=== PATIENT | female | born 1965 | race Caucasian/White ===

== ENCOUNTER 2021-10-11 15:27 | Observation (INO) | payer OTHER ==
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
[2021-10-11] MEDS ORDERED: FENTANYL CITR 100 MCG/2 ML ONE ×3 (15:54→20:51)
[2021-10-11] MEDS ORDERED: NA CHLORIDE 0.9% 1,000 ML ONE ×2 (15:54→20:51)
[2021-10-11] MEDS ORDERED: ONDANSETRON 4 MG/2 ML VIAL ONE ×3 (15:54→20:51)
[2021-10-11 16:04] LABS: Absolute Lymphocytes (CBC) 1.8 K/uL (0.7-4.9); Hematocrit 38.7 % (36.0-45.0); Lymphocytes % 29.6 % (15.3-44.8); MPV 7.7 fL (7.6-11.3); RBC Red Blood Cell Count 4.82 M/uL (3.86-4.86)
[2021-10-11 16:19] LABS: Albumin 3.9 g/dL (3.4-5.0); Bilirubin Total 0.4 mg/dL (0.2-1.0); Potassium 3.1 mmol/L (3.5-5.1); Protein, Total 7.5 g/dL (6.4-8.2)
--- NOTE | 2021-10-11 16:55 | RAD REPORT ---
EXAM DESCRIPTION: US - Abdomen Exam Limited - 10/11/2021 4:25 pm CLINICAL HISTORY: ABD PAIN COMPARISON: Abdomen Exam Limited dated 07/03/2021 FINDINGS: Multiple small mobile gallstones are seen scattered throughout the lumen. There are 2 marcio tional 10-12 mm gallstones that are fixed at the neck of the gallbladder. There is no wall thickening or pericholecystic fluid. No common duct stone or biliary tree dilatation identified. IMPRESSION: Multi stone cholelithiasis including 2 gallstones that are fixed at the neck of the gall bladder. No wall thickening, pericholecystic fluid or other acute cholecystitis findings. No biliary tree abnormality.
--- NOTE | 2021-10-11 17:05 | EDPHYS ---
Physician Documentation [facility] Name: Gisella gA Age: 55 yrs Sex: Female : 1965 Arrival Date: 10/11/2021 Time: 15:28 Bed 24 Private MD: Leobardo Virk ED Physician Dewayne Sanford HPI: 10/11 15:38 This 55 yrs old Female presents to ER via Ambulatory with complaints of Epigastric Pain.kb 15:38 The patient presents with abdominal pain in the right upper quadrant. Onset: The kb symptoms/episode began/occurred this morning. The symptoms do not radiate. Associated signs and symptoms: Pertinent positives: nausea, vomiting, and diarrhea. The symptoms are described as constant. Modifying factors: The symptoms are alleviated by nothing, the symptoms are aggravated by nothing. Severity of pain: At its worst the pain was moderate in the emergency department the pain is unchanged. The patient has not experienced similar symptoms in the past. The patient has not recently seen a physician. Pt reports n/v/d that started Tuesday, today started having RUQ pain. States she has been diagnosed with gallbladder problems in the past and has seen Dr Virk. Was supposed to have surgery, but got covid so she couldn't.. Historical: - Allergies: 15:34 Codeine; ld1 15:34 Darvocet-N 100; ld1 15:34 Hydrocodone Compound; ld1 15:34 PENICILLINS; ld1 15:34 Sulfa (Sulfonamide Antibiotics); ld1 - PMHx: 15:34 Anxiety; Back pain; chronic dry eye; Chronic pain; Degenerative disc disease; ld1 Depression; sciatica; Vertigo; - Immunization history:: Adult Immunizations up to date, Client reports receiving the 2nd dose of the Covid vaccine. - Social history:: Smoking status: Patient denies any tobacco usage or history of. Patient/guardian denies using alcohol. ROS: 15:37 Constitutional: Negative for fever, chills, and weight loss. kb 15:37 Abdomen/GI: Positive for abdominal pain, nausea, vomiting, and diarrhea, Negative for constipation. 15:37 All other systems are negative. Exam: 15:37 Constitutional: This is a well developed, well nourished patient who is awake, alert, kb and in no acute distress. Head/Face: Normocephalic, atraumatic. ENT: Moist Mucous membranes Cardiovascular: Regular rate and rhythm with a normal S1 and S2. No gallops, murmurs, or rubs. No pulse deficits. Respiratory: Respirations even and unlabored. No increased work of breathing. Talking in full sentences Skin: Warm, dry with normal turgor. Normal color. MS/ Extremity: Pulses equal, no cyanosis. Neurovascular intact. Full, normal range of motion. Neuro: Awake and alert, GCS 15, oriented to person, place, time, and situation. Moves all extremities. Normal gait. Psych: Awake, alert, with orientation to person, place and time. Behavior, mood, and affect are within normal limits. 15:37 Abdomen/GI: Inspection: abdomen appears normal, Bowel sounds: normal, in all quadrants, Palpation: soft, in all quadrants, moderate abdominal tenderness, in the right upper quadrant. Vital Signs: 15:32 BP 144 / 90; Pulse 110; Resp 24; Temp 98.2(TE); Pulse Ox 100% on R/A; Weight 86.18 kg; ld1 Height 5 ft. 5 in. (165.10 cm); Pain 10/10; 15:46 BP 139 / 10 LA (man/lg); Pulse 94; Resp 22; Temp 98.1(O); Pulse Ox 100% on R/A; Weight mb7 91.17 kg; Height 5 ft. 6 in. (167.64 cm); 16:56 BP 151 / 81; Pulse 66; Resp 18; Pulse Ox 99% on R/A; ic1 15:46 Body Mass Index 32.44 (91.17 kg, 167.64 cm) mb7 MDM: 15:36 Patient medically screened. kb 15:37 Data reviewed: vital signs, nurses notes. Data interpreted: Pulse oximetry: on room air kb is 100 %. Interpretation: normal. 17:02 Counseling: I had a detailed discussion with the patient and/or guardian regarding: the kb historical points, exam findings, and any diagnostic results supporting the discharge/admit diagnosis, lab results, radiology results, the need for further work-up and treatment in the hospital. Physician consultation: Leobardo Virk MD was contacted at 17:02, regarding admission, to the medical/surgical unit. patient's condition, and will see patient in inpatient room, wants pt NPO starting now, zosyn, pain meds and IVF for admission. 17:03 ED course: Pt is allergic to PCN. Discussed allergy with Dr Virk and he requested kb meropenem in place of zosyn. 10/11 15:37 Order name: CBC with Diff kb 10/11 15:37 Order name: CMP kb 10/11 15:37 Order name: Lipase kb 10/11 15:37 Order name: CBC with Automated Diff; Complete Time: 16:22 EDMS 10/11 15:37 Order name: Comprehensive Metabolic Panel; Complete Time: 16:22 EDMS 10/11 15:37 Order name: Lipase; Complete Time: 16:22 EDMS 10/11 15:37 Order name: Abdomen Limited US; Complete Time: 16:56 kb 10/11 17:03 Order name: COVID-19 SARS RT PCR (Document "Date of Onset" if Symptomatic) kb 10/11 15:37 Order name: IV Saline Lock; Complete Time: 15:47 kb 10/11 15:37 Order name: Labs collected and sent; Complete Time: 15:47 kb Administered Medications: 15:59 Drug: NS 0.9% 1000 ml Route: IV; Rate: 1 bolus; Site: right antecubital; ic1 15:59 Drug: Zofran (Ondansetron) 4 mg Route: IVP; Site: right antecubital; ic1 15:59 Drug: fentaNYL (PF) 50 mcg Route: IVP; Site: right antecubital; ic1 17:27 Follow up: Response: Pain is unchanged, physician notified licona 17:27 Drug: fentaNYL (PF) 50 mcg Route: IVP; Site: right antecubital; licona 17:27 Follow up: Response: No adverse reaction licona 17:27 Drug: Meropenem 1 grams Route: IV; Rate: calculated rate; Site: right antecubital; licona 17:28 Drug: Zofran (Ondansetron) 2 mg Route: IVP; Site: right antecubital; licona 17:28 Follow up: Response: No adverse reaction licona 17:57 Drug: Ketorolac 15 mg Route: IVP; Site: right antecubital; licona 17:57 Follow up: Response: No adverse reaction Disposition: 10/12 08:43 Co-signature as Attending Physician, Dewayne Sanford MD I agree with the assessment and kdr plan of care. Disposition Summary: 10/11/21 17:04 Hospitalization Ordered Hospitalization Status: Observation kb Provider: Leobardo Virk Condition: Stable kb Problem: an acute exacerbation kb Symptoms: are unchanged kb Bed/Room Type: Standard kb Location: Telemetry/MedSurg (observation)(10/11/21 22:39) Room Assignment: [facility](10/11/21 22:39) Diagnosis - Other cholelithiasis without obstruction kb Forms: - Medication Reconciliation Form kb - SBAR form kb Signatures: Dispatcher [employer] EDMS Marya Caicedo, BATCH TRUCKER-C BATCH TRUCKER-Dewayne Rivas MD MD [facility] Fidel Lantiguaic jemima Mariela Herron, RN RN Malathi Mae, RN RN ld1 Nayely Rodriguez RN RN Jayshree Daley RN RN ic1 Corrections: (The following items were deleted from the chart) 10/11 18:28 17:04 Telemetry/MedSurg (observation) kb em1 18:28 17:04 kb em1 22:39 18:28 [facility] ER HOLD em1 cg 22:39 18:28 ERHOLD- em1 cg
--- NOTE | 2021-10-11 17:05 | ER ---
Nurse's Notes [facility] Name: Gisella Ag Age: 55 yrs Sex: Female : 1965 Arrival Date: 10/11/2021 Time: 15:28 Bed 24 Private MD: Leobardo Virk Diagnosis: Other cholelithiasis without obstruction Presentation: 10/11 15:32 Chief complaint: Patient states: Stomach flu X 3 days, now it is my gallbladder. Pt ld1 requesting to see Dr. Bennett, stated "ER needs to call him when she arrives." Reports N/D, RUQ pain. Coronavirus screen: At this time, the client does not indicate any symptoms associated with coronavirus-19. Ebola Screen: No symptoms or risks identified at this time. Initial Sepsis Screen: Does the patient meet any 2 criteria? No. Patient's initial sepsis screen is negative. Does the patient have a suspected source of infection? No. Patient's initial sepsis screen is negative. Risk Assessment: Do you want to hurt yourself or someone else? Patient reports no desire to harm self or others. Onset of symptoms was October 11, 2021. 15:32 Method Of Arrival: Ambulatory ld1 15:32 Acuity: SHRAVAN 3 ld1 Triage Assessment: 15:34 General: Appears in no apparent distress. uncomfortable, Behavior is cooperative, ld1 appropriate for age, anxious. Pain: Complains of pain in right upper quadrant Pain does not radiate. Pain currently is 10 out of 10 on a pain scale. Quality of pain is described as heavy, pressure, Pain began 2-3 days ago. Is continuous. Neuro: Level of Consciousness is awake, alert, obeys commands, Oriented to person, place, time, situation. Cardiovascular: Capillary refill < 3 seconds Patient's skin is warm and dry. Respiratory: Airway is patent Respiratory effort is even, unlabored. Respiratory: Respiratory effort is even, labored. GI: Abdomen is round non-distended, Reports upper abdominal pain. : No signs and/or symptoms were reported regarding the genitourinary system. Derm: No signs and/or symptoms reported regarding the dermatologic system. Musculoskeletal: No signs and/or symptoms reported regarding the musculoskeletal system. Historical: - Allergies: 15:34 Codeine; ld1 15:34 Darvocet-N 100; ld1 15:34 Hydrocodone Compound; ld1 15:34 PENICILLINS; ld1 15:34 Sulfa (Sulfonamide Antibiotics); ld1 - PMHx: 15:34 Anxiety; Back pain; chronic dry eye; Chronic pain; Degenerative disc disease; ld1 Depression; sciatica; Vertigo; - Immunization history:: Adult Immunizations up to date, Client reports receiving the 2nd dose of the Covid vaccine. - Social history:: Smoking status: Patient denies any tobacco usage or history of. Patient/guardian denies using alcohol. Screenin:00 Abuse screen: Denies threats or abuse. Denies injuries from another. Nutritional ic1 screening: No deficits noted. Tuberculosis screening: No symptoms or risk factors identified. Fall Risk None identified. Assessment: 16:00 General: Appears uncomfortable, Behavior is calm, cooperative. Pain: Complains of pain ic1 in abdomen. Neuro: Level of Consciousness is awake, alert, obeys commands, Oriented to person, place, time, situation. Cardiovascular: Denies chest pain. Respiratory: Denies cough, shortness of breath. GI: Reports upper abdominal pain, diarrhea, nausea, vomiting, Patient currently denies constipation. : No deficits noted. EENT: No deficits noted. Derm: No deficits noted. Musculoskeletal: No deficits noted. Vital Signs: 15:32 BP 144 / 90; Pulse 110; Resp 24; Temp 98.2(TE); Pulse Ox 100% on R/A; Weight 86.18 kg; ld1 Height 5 ft. 5 in. (165.10 cm); Pain 10/10; 15:46 BP 139 / 10 LA (man/lg); Pulse 94; Resp 22; Temp 98.1(O); Pulse Ox 100% on R/A; Weight mb7 91.17 kg; Height 5 ft. 6 in. (167.64 cm); 16:56 BP 151 / 81; Pulse 66; Resp 18; Pulse Ox 99% on R/A; ic1 15:46 Body Mass Index 32.44 (91.17 kg, 167.64 cm) mb7 ED Course: 15:28 Patient arrived in ED. as 15:28 Leobardo Virk MD is Private Physician. as 15:31 Marya Caicedo FNP-C is [facility]. kb 15:31 Dewayne Sanford MD is Attending Physician. kb 15:34 Triage completed. ld1 15:34 Arm band placed on left wrist. ld1 15:47 Jayshree Daley, CYNTHIA is Primary Nurse. ic1 15:47 Placed in gown. Bed in low position. Call light in reach. Side rails up X 1. mb7 15:47 CBC with Automated Diff Sent. ic1 15:47 Lipase Sent. ic1 15:47 CBC with Diff Sent. ic1 15:48 Door closed. Noise minimized. Warm blanket given. mb7 15:48 CMP Sent. ic1 15:48 Lipase Sent. ic1 16:00 No provider procedures requiring assistance completed. Inserted saline lock: 20 gauge ic1 in right antecubital area, using aseptic technique. Blood collected. 16:25 Abdomen Limited US In Process Unspecified. EDMS 17:04 Leobardo Virk MD is Hospitalizing Provider. kb 17:28 COVID-19 SARS RT PCR (Document "Date of Onset" if Symptomatic) Sent. licona Administered Medications: 15:59 Drug: NS 0.9% 1000 ml Route: IV; Rate: 1 bolus; Site: right antecubital; ic1 15:59 Drug: Zofran (Ondansetron) 4 mg Route: IVP; Site: right antecubital; ic1 15:59 Drug: fentaNYL (PF) 50 mcg Route: IVP; Site: right antecubital; ic1 17:27 Follow up: Response: Pain is unchanged, physician notified licona 17:27 Drug: fentaNYL (PF) 50 mcg Route: IVP; Site: right antecubital; licona 17:27 Follow up: Response: No adverse reaction licona 17:27 Drug: Meropenem 1 grams Route: IV; Rate: calculated rate; Site: right antecubital; licona 17:28 Drug: Zofran (Ondansetron) 2 mg Route: IVP; Site: right antecubital; licona 17:28 Follow up: Response: No adverse reaction licona 17:57 Drug: Ketorolac 15 mg Route: IVP; Site: right antecubital; licona 17:57 Follow up: Response: No adverse reaction licona Outcome: 17:04 Decision to Hospitalize by Provider. kb 10/12 00:18 Patient left the ED. vc1 Signatures: Dispatcher [employer] EDMarya Bowie, BOWLING BALL MOLDER-C BOWLING BALL MOLDER-Uyen Mckeon Lauren, RN RN ld1 Ramone, [facility] mb7 Nayely Rodriguez, RN RN Jayshree Bradshaw, RN RN ic1 Krystina Epps, RN RN vc1
[2021-10-11] MEDS ORDERED: Meropenem 1000 MG/VIAL IV ONE (17:22)
[2021-10-11] MEDS ORDERED: NA CHLORIDE 0.9% 250 ML ONE (17:22)
[2021-10-11] MEDS ORDERED: KETOROLAC 30 MG/ML INJ ONE (17:52)
[2021-10-11] MEDS ORDERED: ACETAMINOPHEN 500 MG TAB PO PRN (19:20)
[2021-10-11] MEDS: NA CHLORIDE 0.9% 1,000 ML IV SCH (20:56)
[2021-10-11] MEDS: ONDANSETRON 4 MG/2 ML VIAL IV PRN (21:15)
[2021-10-11] MEDS: FENTANYL CITR 100 MCG/2 ML IV PRN (21:15)
[2021-10-12] MEDS: Meropenem 500 MG in NA CHLORIDE 0.9% 100 ML IV SCH ×3 (00:21→16:10)
[2021-10-12] MEDS: FENTANYL CITR 100 MCG/2 ML IV PRN ×3 (02:28→22:19)
[2021-10-12] MEDS: ONDANSETRON 4 MG/2 ML VIAL IV PRN (02:32)
[2021-10-12] MEDS: NA CHLORIDE 0.9% 1,000 ML IV SCH ×2 (05:20→16:10)
[2021-10-12 06:16] LABS: Absolute Lymphocytes (CBC) 2.7 K/uL (0.7-4.9); Lymphocytes % 38.1 % (15.3-44.8); MPV 7.7 fL (7.6-11.3); RBC Red Blood Cell Count 4.14 M/uL (3.86-4.86)
[2021-10-12 06:38] LABS: Potassium 3.4 mmol/L (3.5-5.1)
[2021-10-12 06:39] LABS: Albumin 3.1 g/dL (3.4-5.0); Bilirubin Direct 0.1 mg/dL (0-0.2); Bilirubin Total 0.3 mg/dL (0.2-1.0); Protein, Total 6.1 g/dL (6.4-8.2)
[2021-10-12] MEDS ORDERED: Ringers Lactate 1,000 ML IV ONE ×2 (11:12→13:16)
[2021-10-12] MEDS ORDERED: ONDANSETRON 4 MG/2 ML VIAL ONE ×2 (11:25→13:42)
[2021-10-12] MEDS ORDERED: LIDOCAINE 2% MPF 5 ML VIAL ONE (11:25)
[2021-10-12] MEDS ORDERED: KETOROLAC 30 MG/ML INJ ONE (11:25)
[2021-10-12] MEDS ORDERED: LIDOCAINE 1% MPF 30 ML VIAL ONE (11:25)
[2021-10-12] MEDS ORDERED: FENTANYL CITR 100 MCG/2 ML ONE (11:25)
[2021-10-12] MEDS ORDERED: ROCURONIUM 50 MG/5 ML VIAL IV ONE ×2 (11:25→11:31)
[2021-10-12] MEDS ORDERED: propofoL 200 MG/20 ML VIAL IV ONE ×2 (11:25→11:28)
[2021-10-12] MEDS ORDERED: MIDAZOLAM HCL 2 MG/2 ML INJ ONE ×2 (11:25→11:28)
[2021-10-12] MEDS ORDERED: dexAMETHasone 10 MG/ML VIAL ONE (11:25)
[2021-10-12] MEDS ORDERED: FENTANYL CITR 250 MCG/5 ML ONE (11:29)
[2021-10-12] MEDS: BUPIVACAINE 0.25% PF 10 ML VIAL ONE ×2 (11:30→12:09)
--- NOTE | 2021-10-12 12:43 | HP ---
Date of Admission: 10/11/2021 Brief History Of Present Illness: The patient is a 55-year-old female, known to me from previous i jeffrey visits whereby she came to me with abdominal pain. Ultimately had a HIDA scan, which showed no r adiotracer activity within the gallbladder consistent with cholecystitis. I recommended surgery at t hat time; however, the patient opted to not have surgery. She scheduled it initially, but had cancel ed for logistical reasons. She says she was feeling well; however, she got COVID, which pushed off h er surgery and she had not had time to reschedule at that point for an additional followup. She now presents with approximately a 3-day history of right upper quadrant epigastric abdominal pain similar to episodes before in the past. She states the pain was sharp, stabbing, and severe in the right up per quadrant, similar to her previous episodes. Past Medical History: Significant for back pain, chronic dry eye, chronic pain, degenerative disk di sease, depression, sciatica, and vertigo. Allergies: TO CODEINE, DARVOCET, HYDROCODONE, COMPOUND, PENICILLIN, SULFA. Social History: She denies smoking, alcohol, recreational drug use. Review of Systems: Ten-point review of systems other than HPI, she currently denies. She states she feels significantly better at this time and is now pain-free. Physical Examination: Vital Signs: She has a blood pressure of 107/57, pulse 71, respiratory rate 16, temperature 97.3, Sp O2 98% on room air. General: She is awake, alert, and oriented. Psychiatric: She is appropriate, conversive. HEENT: She is normocephalic. Sclerae anicteric. Mucous membranes are moist. Oropharynx clear. Neck: Supple without JVD. Chest: Normal expansion and excursion. Cardiovascular: Regular rate and rhythm. Pulmonary: Clear to auscultation bilaterally. Abdomen: Soft, nontender, nondistended. No rebound. No guarding. No focal peritonitis. Negative Felix sign. Extremities: No clubbing, cyanosis, edema. Skin: Warm and dry. Laboratory Data: Revealed a white count of 7.0, hemoglobin 10.7, hematocrit of 34.0, platelet count is 266. Her sodium 143, potassium 3.4, chloride 113, carbon dioxide 27, BUN 11, creatinine 0.7, gluc ose is 100, total bilirubin 0.3, direct component 0.1. AST is 19, ALT 31, alkaline phosphatase is 77 . Her lipase is 201. Her COVID was negative at this time. She had an ultrasound performed in the E R, which officially read as multi-stone cholelithiasis, 2 gallstones fixed in the neck of the gallbla dder. No wall thickening, pericholecystic fluid or acute cholecystitis findings. No biliary tree ab normality. She did have a HIDA scan performed previously as described, which showed no radiotracer u ptake consistent with cholecystitis. Assessment And Plan: This is a 55-year-old female, who has had several episodes of cholecystitis con firmed with HIDA scan in the past, who presents with a recurrent episode of biliary colic, now improv ed by pain medications. We have opted to discuss surgical planning at this point. The patient is ag reeable to this at this time and therefore the plan is; 1.IV fluid hydration. 2.Antibiotic coverage. 3.I have explained the risks, benefits, and alternatives of laparoscopic possible open cholecystecto my with ICG cholangiography including, but not limited to bleeding, infection, damage to surrounding tissues, injury to bile ducts and intestines, reaction to injected material, need for further operati on and procedures. The patient agrees to proceed as indicated. ARIELA/JOSE JUAN Voice ID: [id number]
--- NOTE | 2021-10-12 12:57 | P.OP ---
Preoperative diagnosis: Cholecystitis with Cholelithiasis Postoperative diagnosis: Cholecystitis with Cholelithiasis Primary procedure: Laparoscopic cholecystectomy with ICG Cholangiography Anesthesia: GETA + Local Estimated blood loss: <10cc Specimen: Gallbladder Findings: stones in neck of GB Complications: None Transferred to: Recovery Room Condition: Good
[2021-10-12] MEDS ORDERED: GLYCOPYRROLATE 0.2 MG/ML SYR ONE (13:06)
[2021-10-12] MEDS ORDERED: NEOSTIGMINE 1 MG/ML -5 ML ONE (13:06)
[2021-10-12] MEDS ORDERED: PROMETHAZINE INJ 25 MG/ML AMP ONE (13:25)
[2021-10-12] MEDS: HYDROMORPHONE HCL 1 MG/ML INJ ONE ×5 (13:25→14:07)
[2021-10-12] MEDS: FENTANYL CITR 100 MCG/2 ML ONE ×2 (13:40→13:45)
--- NOTE | 2021-10-12 13:49 | OP ---
Date of Procedure: 10/12/2021 Surgeon: Leobardo Virk MD, Preoperative Diagnosis: Cholecystitis with cholelithiasis. Postoperative Diagnosis: Cholecystitis with cholelithiasis. Procedure Performed: Laparoscopic cholecystectomy with ICG that indocyanine green cholangiography. Anesthesia: General endotracheal plus local with 0.25% Marcaine without epinephrine. Estimated Blood Loss: Less than 10 cc. Specimen: Gallbladder. Findings: 1.Stones impacted in neck of gallbladder. 2.Distended gallbladder. 3.Significant inflammatory hydrops of the gallbladder. Complications: None. Disposition: The patient was transferred to the recovery in good condition. Procedure In Detail: After informed consent was obtained, the patient was brought to the operating r oom, prepped and draped in the usual sterile fashion after adequate anesthesia was achieved and the a jose m of the supraumbilical area was anesthetized with 0.25% Marcaine, sharply incised. A 5 mm 0-degre e optical trocar was introduced into the abdomen without evidence of complication. Insufflation was obtained to 15 mmHg at this time. No injury to vital structures upon entry into the abdomen. Three additional were trocars placed, 1 in the epigastrium and 2 in the right upper quadrant. All these si milarly anesthetized, sharply incised. A 5 mm trocar was placed under direct visualization without e vidence of complication. A 12 mm trocar was then replaced into the supraumbilical trocar site and th e patient positioned in the head up right-side up position. Ratcheted grasper was used to grasp the patient's gallbladder fundus and placed the gallbladder towards the patient's right shoulder. Dissec tion continued down near the Karmen pouch of the gallbladder. Significant hydrops was evident in t his area with inflammatory changes consistent with hydrops of the gallbladder. Dissection continued down to expose 2 structures identified as both the cystic duct and cystic artery confirmed with ICG c holangiography at this point. After ICG cholangiography and skeletonization of the structures were p erformed, I placed double titanium clips on the proximal side and distal side of both cystic duct and cystic artery. I then ligated these structures using Endo Anastasiia. At this point, the gallbladder w as removed through the hepatic fossa without evidence of complication using electrocautery, placed in EndoCatch bag, removed the umbilical trocar, sent off for pathologic examination. The area was then copiously irrigated and suctioned out until completely dry. The patient was positioned back in neut ral position. The remaining effluent was suctioned out and the patient remained in a neutral positio n. At this point, the umbilical trocar site was closed using a Yuriy-Serge suture passer with 0 Vicryl in interrupted fashion with good approximation of tissues. The remaining trocars were removed after completely de-sufflating the abdomen under direct vision without evidence of complication. Al l skin incisions were then copiously irrigated and closed with 4-0 Monocryl in a running fashion. De rmabond placed over top. The patient tolerated the procedure well without evidence of complication a nd transferred to PACU in good condition. All counts were correct at the end of the case. ARIELA/JOSE JUAN Voice ID: [id number] Report ID: [id number]
[2021-10-12] MEDS ORDERED: HYDROCODONE/APAP 5/325 MG TAB PO PRN (14:08)
[2021-10-12] MEDS: TRAMADOL HCL 50 MG TAB PO PRN (16:10)
[2021-10-12 20:58] VITALS: BMI 33.0
[2021-10-12 22:52] VITALS: O2SAT 97
[2021-10-13] MEDS: TRAMADOL HCL 50 MG TAB PO PRN ×3 (01:53→14:42)
[2021-10-13] MEDS: Meropenem 500 MG in NA CHLORIDE 0.9% 100 ML IV SCH ×2 (01:53→08:38)
[2021-10-13] MEDS: NA CHLORIDE 0.9% 1,000 ML IV SCH ×3 (01:56→12:53)
[2021-10-13 05:34] LABS: Absolute Lymphocytes (CBC) 1.7 K/uL (0.7-4.9); Hematocrit 32.5 % (36.0-45.0); Lymphocytes % 20.4 % (15.3-44.8); MPV 7.6 fL (7.6-11.3)
[2021-10-13 05:58] LABS: Albumin 3.1 g/dL (3.4-5.0); Bilirubin Total 0.4 mg/dL (0.2-1.0); Potassium 3.6 mmol/L (3.5-5.1); Protein, Total 5.9 g/dL (6.4-8.2)
[2021-10-13] MEDS: FENTANYL CITR 100 MCG/2 ML IV PRN ×2 (06:11→10:56)
[2021-10-13 12:24] VITALS: BP 127/61; TEMP 97.8
[2021-10-13] MEDS ORDERED: Meropenem 1,000 MG in NA CHLORIDE 0.9% 100 ML IV SCH (17:00)
== END 2021-10-13 14:50 | disposition home or self-care (01) ==
LOC: ER 15:27 → ERHOLD 17:05 → 2ND 22:52
PROVIDERS: ADMIT Surgery; ATTEND Surgery
PROC: BF00YZZ Plain Radiography of Bile Ducts using Other Contrast (ICD-10-PCS; 2021-10-12)
PROC: 0FT44ZZ Resection of Gallbladder, Percutaneous Endoscopic Approach (ICD-10-PCS; principal; 2021-10-12 12:00)
DX: K80.10 Calculus of gallbladder with chronic cholecystitis without obstruction (principal); K82.1 Hydrops of gallbladder; Z20.822 Contact with and (suspected) exposure to COVID-19; F32.A Depression, unspecified
CPT/HCPCS: 47562; 85025 ×3; 80048; 36415 ×2; 80076; 88304; 83690 ×2; 80053 ×2; 76705; 96375; 96374; 99284; U0003; J2704; J2550; J2250; J3010 ×11; J1100; J2185; J1170 ×2; J2710; G0378 ×5; J7120 ×2; J7050; J7030 ×6; J2405 ×6

== ENCOUNTER 2025-04-28 21:05 | Emergency (ER) | payer BC, OTHER ==
[2025-04-28] MEDS ORDERED: ONDANSETRON 4 MG/2 ML VIAL ONE (22:57)
[2025-04-28] MEDS ORDERED: NA CHLORIDE 0.9% 1,000 ML ONE (22:58)
[2025-04-28] MEDS ORDERED: MORPHINE 4 MG/ML SYR ONE (22:58)
[2025-04-28] MEDS ORDERED: LACTULOSE 20 GM/30 ML UCUP ONE (22:58)
[2025-04-28] MEDS ORDERED: BISACODYL 10 MG RECTAL SUPP ONE (22:58)
[2025-04-28 23:21] LABS: Absolute Lymphocytes (CBC) 1.7 K/uL (0.7-4.9); Hematocrit 40.4 % (36.0-45.0); Hemoglobin 13.9 g/dL (12.0-15.0); MCH 28.4 pg (27.0-35.0); MCHC 34.4 g/dL (32.0-36.0); MCV 82.6 fL (80-100); MPV 8.0 fL (7.6-11.3); Nucleated RBC Absolute Count 0.0 (0-0); Nucleated Red Blood Cells % 0.0 % (0-0); RBC Red Blood Cell Count 4.89 M/uL (3.86-4.86); White Blood Count 13.60 thou/uL (4.3-10.9)
[2025-04-28 23:36] LABS: ALT/SGPT 32.0 U/L (13-56); AST/SGOT 18.0 U/L (15-37); Albumin 4.6 g/dL (3.4-5.0); Albumin/Globulin Ratio 1.3 (1.1-1.8); Alkaline Phosphatase 107.0 U/L (45-117); Anion Gap 10.6 mEq/L (5.0-15.0); BUN Blood Urea Nitrogen 17.0 mg/dL (7-18); Globulin 3.6 g/dL (2.3-3.5); Glucose Level 120.0 mg/dL (74-106); Lipase 55.0 U/L (13-75); Potassium 3.6 mEq/L (3.5-5.1)
[2025-04-29] MEDS ORDERED: MORPHINE 4 MG/ML SYR ONE (00:20)
--- NOTE | 2025-04-29 02:19 | RAD REPORT ---
EXAM: CT Abdomen and Pelvis With Intravenous Contrast CLINICAL HISTORY: The patient is 59 years old and is Female; Abd pain;Constipation TECHNIQUE: Axial computed tomography images of the abdomen and pelvis with intravenous contrast. Sagittal an d coronal reformatted images were created and reviewed. This CT exam was performed using one or more of the following dose reduction techniques: automated exposure control, adjustment of the mA a nd/or kV according to patient size, and/or use of iterative reconstruction technique. COMPARISON: No relevant prior studies available. FINDINGS: LUNG BASES: Unremarkable. No mass. No consolidation. ABDOMEN: LIVER: Minimal tiny low-attenuation foci in the liver too small for definitive characterization b ut favoring cysts. GALLBLADDER AND BILE DUCTS: Mild biliary ductal prominence likely related to postcholecystectomy. PANCREAS: Unremarkable. No mass. No ductal dilation. SPLEEN: Unremarkable. No splenomegaly. ADRENALS: Unremarkable. No mass. KIDNEYS AND URETERS: Exophytic lower pole left renal cyst. This requires no specific additional f ollow-up. No hydronephrosis. STOMACH AND BOWEL: Mild thickening of gastric folds likely due to underdistention. Gastritis less likely. Mild thickening of the anorectal junction with trace adjacent fat stranding. Moderate colonic diverticulosis without diverticulitis. Minimal scattered air-fluid levels within the ascend ing and transverse colon. PELVIS: APPENDIX: Appendix is normal. BLADDER: Unremarkable. No mass. REPRODUCTIVE: Atrophic uterus. ABDOMEN and PELVIS: INTRAPERITONEAL SPACE: Unremarkable. No free air. No significant fluid collection. BONES/JOINTS: Scattered degenerative changes in the spine and pelvis. No acute fracture. No d islocation. SOFT TISSUES: Unremarkable. VASCULATURE: Calcifications in the pelvis likely represent phleboliths. No abdominal aortic ane urysm. LYMPH NODES: Unremarkable. No enlarged lymph nodes. IMPRESSION: 1. Mild thickening of the anorectal junction with trace adjacent fat stranding. This may be inciden kaycee or due to proctitis. Neoplasia thought less likely but follow-up recommended. 2. Minimal scattered air-fluid levels within the ascending and transverse colon. This may be incide ntal or due to mild enterocolitis. 3. Moderate colonic diverticulosis without diverticulitis. Electronically signed by: Gadiel Stone MD 04/29/2025 02:15 AM CDT RP Due to temporary technical issues with the [employer] reporting system, reports are being valentina d by the in-house radiologist without review as a courtesy to ensure prompt reporting the interpreting radiologist is fully responsible for the content of the report. Transcribed Date/Time: 04/29/2025 2:19 AM
--- NOTE | 2025-04-29 02:45 | EDPHYS ---
Physician Documentation [facility] Name: Gisella Ag Age: 59 yrs Sex: Female : 1965 Arrival Date: 04/28/2025 Time: 21:05 Bed 16 Private MD: Santy Whelan E ED Physician Chay Bañuelos HPI: 04/28 22:55 This 59 yrs old Female presents to ER via Ambulatory with complaints of Rectal cp Bleeding, Rectal Pain, Constipation. 22:55 The patient presents to the emergency department with pain in the rectal area, that is cp moderate. 22:55 Context: the patient last bowel movement 4 days ago. cp 22:55 Associate signs and symptoms: Pertinent positives: abdominal pain in the abdomen cp diffusely, blood in toilet, Pertinent negatives: fever, vomiting. Historical: - Allergies: 21:37 Codeine; me1 21:37 Darvocet-N 100; me1 21:37 Hydrocodone Compound; me1 21:37 PENICILLINS; me1 21:37 Sulfa (Sulfonamide Antibiotics); me1 - PMHx: 21:37 Anxiety; Back pain; chronic dry eye; Chronic pain; Degenerative disc disease; me1 Depression; sciatica; Vertigo; - PSHx: 21:37 Cholecystectomy; me1 - Immunization history:: Adult Immunizations not immunized. - Infectious Disease History:: Denies. - Social history:: Smoking status: Patient denies any tobacco usage or history of. ROS: 23:00 Abdomen/GI: Positive for nausea, constipation, rectal pain, cp 23:00 Constitutional: Negative for body aches, chills, fever, poor PO intake, cp Exam: 23:05 Constitutional: The patient appears in no acute distress, alert, awake, cp non-diaphoretic, non-toxic, well developed, well nourished, obese, uncomfortable, 23:05 Head/Face: Normocephalic, atraumatic. cp 23:05 Eyes: Periorbital structures: appear normal, Conjunctiva: normal, no exudate, no injection, Sclera: no appreciated abnormality, Lids and lashes: appear normal, bilaterally, 23:05 ENT: External ear(s): are unremarkable, Nose: is normal, Mouth: Lips: moist, Oral mucosa: moist, Posterior pharynx: Airway: no evidence of obstruction, patent, erythema, is not appreciated, exudate, is not appreciated, 23:05 Chest/axilla: Inspection: normal, 23:05 Cardiovascular: Rate: normal, Rhythm: regular, Edema: is not appreciated, JVD: is not appreciated, 23:05 Respiratory: the patient does not display signs of respiratory distress, Respirations: normal, no use of accessory muscles, no retractions, labored breathing, is not present, Breath sounds: are clear throughout, no decreased breath sounds, no stridor, no wheezing, 23:05 Abdomen/GI: Inspection: obese Bowel sounds: active, all quadrants, Palpation: soft, in all quadrants, moderate abdominal tenderness, in all quadrants, Rectal exam: fecal impaction, that is moderate, 23:05 Neuro: Orientation: to person, place \T\ time. Mentation: is normal, Motor: moves all fours, strength is normal, Sensation: is normal, Vital Signs: 21:34 BP 147 / 87; Pulse 87; Resp 18; Temp 98.1; Pulse Ox 100% ; Weight 101.6 kg; Height 5 me1 ft. 6 in. ; Pain 7/10; 22:43 BP 143 / 92; Pulse 94; Resp 20; Pulse Ox 98% on R/A; kj2 23:25 BP 144 / 75; Pulse 76; Resp 20; Pulse Ox 98% on R/A; kj2 1006 01:18 BP 131 / 84; Pulse 77; Resp 17 S; Pulse Ox 99% on R/A; lg3 02:54 BP 137 / 81; Pulse 71; Resp 17 S; Pulse Ox 98% on R/A; lg3 04/28 21:34 Body Mass Index 36.15 (101.60 kg, 167.64 cm) me1 04/28 21:34 Pain Scale: Adult me1 MDM: 04/28 21:42 Medical Screening Exam initiated cp 04/29 02:45 Data reviewed: vital signs, nurses notes, lab test result(s), radiologic studies, CT cp scan, and as a result, I will discharge patient. 02:45 I considered the following discharge prescriptions or medication management in the emergency department Medications were administered in the Emergency Department. See MAR. 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 Response to treatment: the patient's symptoms have markedly improved after treatment, large bowel movement observed in ED. 04/28 22:48 Order name: CBC with Diff; Complete Time: 23:52 cp 04/28 23:52 Interpretation: Normal except: WBC 13.60; RBC 4.89; MARS% 82.5; LYM% 12.7; NEUT A 11.2. cp 04/28 22:48 Order name: CMP; Complete Time: 23:52 cp 04/28 22:48 Order name: Lipase; Complete Time: 23:52 cp 04/28 22:48 Order name: CT Abd/Pelvis - PO and IV Contrast: scan after 1 hour; Complete Time: 02:40 cp 04/29 02:41 Interpretation: Report reviewed. cp 04/28 22:48 Order name: IV Saline Lock; Complete Time: 23:16 cp 04/28 22:48 Order name: Labs collected and sent; Complete Time: 23:16 cp Administered Medications: 04/28 23:14 Drug: Dulcolax IN Suppository 10 mg IN once Route: IN; kj2 04/29 01:20 Follow up: Response: No adverse reaction 3 04/28 23:15 Drug: Lactulose PO 30 grams 45 ml PO once Volume: 45 ml; Route: PO; kj2 04/29 01:20 Follow up: Response: No adverse reaction 3 04/28 23:16 Drug: Ondansetron IVP 4 mg IVP once; over 2 minutes Route: IVP; Site: left antecubital; kj2 04/29 01:20 Follow up: Response: No adverse reaction 3 04/28 23:16 Drug: morphine IVP or IV 4 mg IVP once over 4 mins Route: IVP; Infused Over: 4 mins; kj2 Site: left antecubital; 04/29 01:20 Follow up: Response: No adverse reaction 3 04/28 23:16 Drug: NS 0.9% IV 1000 ml IV at 1 bolus Per protocol; to be given as a bolus over 60 kj2 minutes Route: IV; Rate: 1 bolus; Site: left antecubital; 04/29 01:20 Follow up: Response: No adverse reaction; IV Status: Completed infusion; IV Intake: lg3 1000ml 00:24 Drug: morphine IVP or IV 4 mg IVP once over 4 mins Route: IVP; Infused Over: 4 mins; lg3 Site: left antecubital; 01:19 Follow up: Response: No adverse reaction; Marked relief of symptoms lg3 Disposition: 17:31 Chart complete. cp 20:08 Co-signature as Attending Physician, Chay Bañuelos MD I agree with the assessment sp4 and plan of care. I reviewed the patient's care provided by the Advanced Practice Provider and agree with the diagnosis and treatment plan. Disposition Summary: 04/29/25 02:45 Discharge Ordered Notes: Location: Home cp Problem: new cp Symptoms: have improved cp Condition: Stable cp Diagnosis - Constipation, unspecified cp - Fecal impaction cp Followup: cp - With: Santy Zaman MD - When: 5 - 6 days - Reason: Recheck today's complaints Discharge Instructions: - Discharge Summary Sheet cp - Constipation, Adult cp - Fecal Impaction cp Forms: - Medication Reconciliation Form cp - Antibiotic Education cp - Prescription Opioid Use cp - Patient Portal Instructions cp - Leadership Thank You Letter cp Prescriptions: - Golytely [id number] -5.86 gram Oral Recon Soln - administer 240 milliliter ORAL route every 1-2 hours until bowel movement; 4000 cp milliliter; Refills: 0, Product Selection Permitted Signatures: Dispatcher [employer] EDMS Archie Jules PA-C PA-C cp Able, Lacie, RN RN lg3 Chay Bañuelos MD MD sp4 Felicia Soares RN RN me1 Vida Mahoney, CYNTHIA RN kj2 Corrections: (The following items were deleted from the chart) 04/28 22:48 22:48 CBC+H.LAB.BRZ ordered. EDMS EDMS 22:48 22:48 COMPREHENSIVE METABOLIC PANEL+C.LAB.BRZ ordered. EDMS EDMS 22:48 22:48 LIPASE+C.LAB.BRZ ordered. EDMS EDMS
--- NOTE | 2025-04-29 02:45 | ER ---
Nurse's Notes [facility] Name: Gisella Ag Age: 59 yrs Sex: Female : 1965 Arrival Date: 04/28/2025 Time: 21:05 Bed 16 Private MD: Santy Whelan E Diagnosis: Constipation, unspecified;Fecal impaction Presentation: 04/28 21:34 Chief complaint: Patient states: constipation x 4 days, abdominal pain, rectal me1 pain/pressure. 01/31. States her rectum is "kind of hanging down", bright red blood on the toilet paper tonight. Since this evening patient has taken ex lax and a dulcolax suppository. Unable to sit during triage due to rectal pain/pressure. Reports some intermittent nausea. Coronavirus screen: Vaccine status: Patient reports being unvaccinated. Ebola Screen: No symptoms or risks identified at this time. Initial Sepsis Screen: Does the patient meet any 2 criteria? No. Patient's initial sepsis screen is negative. Does the patient have a suspected source of infection? No. Patient's initial sepsis screen is negative. Risk Assessment: Do you want to hurt yourself or someone else? Patient reports no desire to harm self or others. Onset of symptoms was April 27, 2025. 21:34 Method Of Arrival: Ambulatory [facility] 21:34 Acuity: SHRAVAN 3 me1 Triage Assessment: 21:38 General: Appears uncomfortable, well groomed, well developed, Behavior is calm, me1 cooperative, appropriate for age. Pain: Complains of pain in abdomen and rectum. EENT: No signs and/or symptoms were reported regarding the EENT system. Neuro: Level of Consciousness is awake, alert, obeys commands, Oriented to person, place, time, situation, Appropriate for age. Cardiovascular: Patient's skin is warm and dry. Respiratory: Airway is patent Respiratory effort is even, unlabored, Respiratory pattern is regular, symmetrical. GI: Reports lower abdominal pain, upper abdominal pain, constipation, rectal bleeding, nausea, since yesterday. : No signs and/or symptoms were reported regarding the genitourinary system. Derm: Skin is intact, is healthy with good turgor, Skin is normal. Musculoskeletal: Circulation, motion, and sensation intact. Range of motion: intact in all extremities. Historical: - Allergies: 21:37 Codeine; me1 21:37 Darvocet-N 100; me1 21:37 Hydrocodone Compound; me1 21:37 PENICILLINS; me1 21:37 Sulfa (Sulfonamide Antibiotics); me1 - PMHx: 21:37 Anxiety; Back pain; chronic dry eye; Chronic pain; Degenerative disc disease; me1 Depression; sciatica; Vertigo; - PSHx: 21:37 Cholecystectomy; me1 - Immunization history:: Adult Immunizations not immunized. - Infectious Disease History:: Denies. - Social history:: Smoking status: Patient denies any tobacco usage or history of. Screenin:22 [facility] ED Fall Risk Assessment (Adult) History of falling in the last 3 months, kj2 including since admission No falls in past 3 months (0 pts) Confusion or Disorientation No (0 pts) Intoxicated or Sedated No (0 pts) Impaired Gait No (0 pts) Mobility Assist Device Used No (0 pt) Altered Elimination No (0 pt) Score/Fall Risk Level 0 - 2 = Low Risk Maintained a safe environment, Hourly rounding (assess needs \\T\\ fall precautionary measures) done. Abuse screen: Denies threats or abuse. Denies injuries from another. Nutritional screening: No deficits noted. Tuberculosis screening: No symptoms or risk factors identified. Assessment: 22:18 General: Appears in no apparent distress. Behavior is cooperative. Pain: Complains of kj2 pain in rectal Pain currently is 4 out of 10 on a pain scale. Neuro: Level of Consciousness is awake, alert, obeys commands, Oriented to person, place, time, situation, Appropriate for age. Cardiovascular: Patient's skin is warm and dry. Respiratory: Airway is patent Respiratory effort is even, unlabored. GI: Reports constipation. : No signs and/or symptoms were reported regarding the genitourinary system. 22:44 Reassessment: Patient appears in no apparent distress at this time. Patient is alert, kj2 oriented x 3, equal unlabored respirations, skin warm/dry/pink. 23:46 Reassessment: Patient appears in no apparent distress at this time. Patient and/or kj2 family updated on plan of care and expected duration. Pain level reassessed. Patient is alert, oriented x 3, equal unlabored respirations, skin warm/dry/pink. 10/06 01:17 General: PT produced large BM at this time. provider notified. lg3 01:18 Reassessment: Patient states feeling better. Patient states symptoms have improved. lg3 General: Appears in no apparent distress. comfortable, Behavior is calm, cooperative. Neuro: No deficits noted. Barnhart Agitation-Sedation Scale (RASS): 0 - Alert and Calm Level of Consciousness is awake, alert, obeys commands, Oriented to person, place, time, situation. GI: Bowel sounds present X 4 quads. Abd is soft and non tender X 4 quads. Reports large bowel movement. 02:42 Reassessment: Patient appears in no apparent distress at this time. No changes from lg3 previously documented assessment. Patient and/or family updated on plan of care and expected duration. Pain level reassessed. Patient is alert, oriented x 3, equal unlabored respirations, skin warm/dry/pink. Patient states feeling better. Patient states symptoms have improved. Vital Signs: 04/28 21:34 BP 147 / 87; Pulse 87; Resp 18; Temp 98.1; Pulse Ox 100% ; Weight 101.6 kg; Height 5 me1 ft. 6 in. ; Pain 7/10; 22:43 BP 143 / 92; Pulse 94; Resp 20; Pulse Ox 98% on R/A; kj2 23:25 BP 144 / 75; Pulse 76; Resp 20; Pulse Ox 98% on R/A; kj2 04/29 01:18 BP 131 / 84; Pulse 77; Resp 17 S; Pulse Ox 99% on R/A; lg3 02:54 BP 137 / 81; Pulse 71; Resp 17 S; Pulse Ox 98% on R/A; lg3 04/28 21:34 Body Mass Index 36.15 (101.60 kg, 167.64 cm) me1 04/28 21:34 Pain Scale: Adult ri1 ED Course: 04/28 21:10 Patient arrived in ED. gm2 21:11 Santy Whelan MD is Private Physician. gm2 21:26 Archie Jules PA-C is PHCP. cp 21:26 Chay Bañuelos MD is Attending Physician. cp 21:37 Triage completed. me1 21:37 Arm band placed on Patient placed in waiting room. me1 22:06 Vida Mahoney, CYNTHIA is Primary Nurse. kj2 22:23 Patient has correct armband on for positive identification. Bed in low position. Call kj2 light in reach. Provided Education on: call light. 23:17 Inserted saline lock: 22 gauge in left antecubital area, using aseptic technique. Blood kj2 collected. Flushed with 10 mL NS. 04/29 02:04 CT Abd/Pelvis - PO and IV Contrast: scan after 1 hour In Process Unspecified. EDMS 02:43 Santy Zaman MD is Referral Physician. cp 02:55 No provider procedures requiring assistance completed. IV discontinued, intact, lg3 bleeding controlled, No redness/swelling at site. Pressure dressing applied. Administered Medications: 04/28 23:14 Drug: Dulcolax MI Suppository 10 mg MI once Route: MI; kj2 04/29 01:20 Follow up: Response: No adverse reaction lg3 04/28 23:15 Drug: Lactulose PO 30 grams 45 ml PO once Volume: 45 ml; Route: PO; kj2 04/29 01:20 Follow up: Response: No adverse reaction lg3 04/28 23:16 Drug: Ondansetron IVP 4 mg IVP once; over 2 minutes Route: IVP; Site: left antecubital; kj2 04/29 01:20 Follow up: Response: No adverse reaction lg3 04/28 23:16 Drug: morphine IVP or IV 4 mg IVP once over 4 mins Route: IVP; Infused Over: 4 mins; kj2 Site: left antecubital; 04/29 01:20 Follow up: Response: No adverse reaction lg3 04/28 23:16 Drug: NS 0.9% IV 1000 ml IV at 1 bolus Per protocol; to be given as a bolus over 60 kj2 minutes Route: IV; Rate: 1 bolus; Site: left antecubital; 04/29 01:20 Follow up: Response: No adverse reaction; IV Status: Completed infusion; IV Intake: lg3 1000ml 00:24 Drug: morphine IVP or IV 4 mg IVP once over 4 mins Route: IVP; Infused Over: 4 mins; lg3 Site: left antecubital; 01:19 Follow up: Response: No adverse reaction; Marked relief of symptoms lg3 Medication: 04/28 22:23 VIS not applicable for this client. kj2 Intake: 04/29 01:20 IV: 1000ml; Total: 1000ml. lg3 Outcome: 02:45 Discharge ordered by . cp 02:55 Discharged to home ambulatory, with significant other, lg3 02:55 Condition: stable 02:55 Discharge instructions given to patient, Instructed on discharge instructions, follow up and referral plans. medication usage, Demonstrated understanding of instructions, follow-up care, medications, Prescriptions given X 1, 02:55 Patient left the ED. lg3 Signatures: Dispatcher [employer] EDMS Archie Jules, PA-C PA-C Graciela Zendejas, RN RN lg3 Felicia Soares, RN RN me1 Priti Garcia gm2 Vida Mahoney RN RN kj2 Corrections: (The following items were deleted from the chart) 00:02 10/05 22:43 BP 144 / 75; Pulse 72bpm; Resp 18bpm; Pulse Ox 98% RA; kj2 kj2
[2025-04-29 03:42] VITALS: TEMP 98.1
[2025-04-29 03:49] VITALS: BP 137/81; O2SAT 98
== END 2025-04-29 02:55 | disposition home or self-care (01) ==
LOC: ER 21:05
DX: K56.41 Fecal impaction (principal); F41.9 Anxiety disorder, unspecified; Z88.0 Allergy status to penicillin; Z88.2 Allergy status to sulfonamides; Z88.8 Allergy status to other drugs, medicaments and biological substances
CPT/HCPCS: 96361; 85025; 36415; 83690; 80053; 74177; 96375; 96374; 99284; Q9967; J2405; J7030